=== PATIENT | female | born 1990 | race African-American/Black ===

== ENCOUNTER 2019-07-11 07:30 | Inpatient (IN) | payer OTHER ==
--- NOTE | 2019-07-01 09:39 | HPE ---
DATE OF SERVICE: 07/11/2019 This lady is a 28-year-old 3, para 2, LMP is 08/13/2018, EDC is 07/18/2019 booked for elective repeat section on 07/12/2019. PAST HISTORY: In 2014 at 39 weeks section induction of labor for preeclampsia malpresentation delivered an 5 pounds 10 ounces. In 2016 at 39 weeks had repeat section electively for 6 pounds 7 ounces. She has also had bilateral eye surgery. Presently she is taking one baby aspirin a day, iron, vitamin C and vitamins. She has no known allergies. On examination today symphysis fundus height is 39, vertex presenting, heart rate is 140 beats per minute. Presently she weighs 153.2 pounds. Her BMI is 19.7. The rest of the examination is unremarkable. Normocephalic, atraumatic. Neck full range of motion. Pupils equal and reactive to light. Distal pulses symmetric. No evidence of deep venous thrombosis (DVT), pulmonary embolus (PE) or superficial phlebitis. Chest is clear bilaterally to bases. No wheezes or rhonchi. No costovertebral angle (CVA) tenderness. Abdomen is soft, four quadrant bowel sounds are noted. Incision is clean and dry and nontender. She has no rashes, lesions or pruritus. No arthralgia or myalgia. No complaint of joint pain. No complaint of cough, wheezes, shortness breath or dyspnea on exertion. No nausea, vomiting, diarrhea or constipation. No urgency. No frequency. No GI issues and no diabetic issues. We discussed the risks and benefits of repeat section including hemorrhage, infection, perforation, , reoperation, remote possibility of blood transfusion, remote possibility of hysterectomy for life-threatening bleeding situations. We also reviewed the risk of laceration and the fetus ending up in the NICU either secondary to trauma or because of blood sugar issues. The patient expressed understanding of the risks and benefits of surgery, signed the consent form. All questions were answered. 40-minute discussion. The patient's electively booked for July 12, 2019 and she was told to discontinue her aspirin 3 days prior to section. cc: URINALYSIS TECHNICIAN Stephanie GARCIA
[~2019-07-11] VITALS: Ht 162.6 cm; Wt 70.5 kg
[~2019-07-11 07:30] MED LIST: ECOT81TA5 PO; IRON65TA2 PO; PRENTAB9 PO; VITA100T59 PO
[2019-07-12] VITALS (8 sets, daily range): BP systolic 104–133; BP diastolic 60–76
[2019-07-12] MEDS ORDERED: AZITHROMYCIN INJ 500 MG, VIAL MATE ADAPTER 1 EACH in D5W 250 ML IV ONE (05:30)
[2019-07-12] MEDS ORDERED: BICITRA 30ML SOLN UDC PO ONE ×2 (05:30→06:30)
[2019-07-12] MEDS ORDERED: BUPIVACAINE HCL 0.25% 10 ML VIAL INFIL ONE (05:30)
[2019-07-12] MEDS ORDERED: ceFAZolin SOD 2 GM in IV 1 EA IV ONE ×2 (05:30→06:30)
[2019-07-12] MEDS ORDERED: ACETAMINOPHEN 650 MG SUPP PR ONE (05:30)
[2019-07-12 05:44] LABS: HEMATOCRIT 37.1 % (36.0-47.0); HEMOGLOBIN 12.5 g/dl (12.0-15.5); MEAN CORPUSCULAR HEMOGLOBIN 29.8 pg (27.0-33.0); MEAN CORPUSCULAR HGB CONC 33.7 g/dl (32.0-36.5); MEAN CORPUSCULAR VOLUME 88.5 fl (80.0-96.0); PLATELET COUNT, AUTOMATED 103 10^3/uL (150-450); RED BLOOD COUNT 4.19 10^6/uL (4.00-5.40); WHITE BLOOD COUNT 7.7 10^3/uL (4.0-10.0)
[2019-07-12] MEDS ORDERED: LACTATED RINGER'S 1000 ML IV STA (06:16)
[2019-07-12] MEDS ORDERED: NALOXONE INJ 0.4 MG/1 ML VIAL (J2310) IV PRN ×2 (07:42)
[2019-07-12] MEDS ORDERED: NALBUPHINE HCL 10 MG/ML AMP (J2300) IV PRN ×2 (07:42→10:15)
[2019-07-12] MEDS ORDERED: ONDANSETRON 4MG/2ML VIAL (J2405) IV PRN ×2 (07:42→10:15)
[2019-07-12] MEDS ORDERED: METOCLOPRAMIDE INJ 10MG/2ML VIAL (J2765) IV PRN (07:42)
[2019-07-12] MEDS ORDERED: MORPHINE PRES-FREE INJ 10 MG/10 ML VIAL (J2274) As Ordered ONE (07:56)
[2019-07-12] MEDS ORDERED: OXYTOCIN INJ 10 UNITS/ML VIAL (J2590) As Ordered ONE (07:56)
[2019-07-12 08:27] LABS: CORD GAS ABE V -2.5; CORD GAS HCO3 V 24.7 MEQ/L; CORD GAS O2 SAT V 48.3 %; CORD GAS PH V 7.295 UNITS; CORD GAS PO2 V 21.5 mmHg; CORD GAS SBC V 21.2 MEQ/L; CORD GAS TCO2 V 26.3 MEQ/L
[2019-07-12] MEDS ORDERED: PHENYLephrine HCL 500 MCG/5 ML (100MCG/ML) SYRINGE (J2370) As Ordered ONE (08:27)
[2019-07-12 08:30] LABS: CORD GAS ABE A -3.5; CORD GAS HCO3 A 24.9 MEQ/L; CORD GAS O2 SAT A 26.5 %; CORD GAS PCO2 A 59.6 mmHg; CORD GAS PH A 7.239 UNITS; CORD GAS TCO2 A 26.7 MEQ/L
[2019-07-12] MEDS ORDERED: ONDANSETRON 4MG/2ML VIAL (J2405) As Ordered ONE (09:07)
[2019-07-12] MEDS ORDERED: LR 1,000 ML IV SCH ×2 (09:21→10:15)
[2019-07-12] MEDS ORDERED: ANUSOL HC CREAM 30GM TOP PRN (09:30)
[2019-07-12] MEDS ORDERED: OXYTOCIN DRIP 30 UNITS in IV 1 EA IV ONE (09:30)
[2019-07-12] MEDS ORDERED: RHOGAM 300 MCG (1500 IU) INJ (J2790) IM SCH ×2 (09:30)
[2019-07-12] MEDS ORDERED: MEASLES,MUMPS,RUBELLA VACCINE INJ (MMR-II) (90707) SC SCH ×2 (09:30)
[2019-07-12] MEDS ORDERED: ACETAMINOPHEN 650 MG SUPP PR PRN (09:30)
[2019-07-12] MEDS ORDERED: IBUPROFEN 800 MG TAB PO PRN (09:30)
[2019-07-12] MEDS ORDERED: MOM 30ML SUSPENSION UDC PO PRN (09:30)
[2019-07-12] MEDS ORDERED: IBUPROFEN 600 MG TAB PO PRN (09:30)
[2019-07-12] MEDS ORDERED: ACETAMINOPHEN TAB 650MG DOSE (2X325MG) PO PRN (09:30)
[2019-07-12] MEDS ORDERED: ACETAMINOPHEN 500 MG TAB PO PRN (09:30)
[2019-07-12] MEDS ORDERED: DOCUSATE SODIUM 100 MG CAP PO PRN (09:30)
[2019-07-12] MEDS ORDERED: OXYTOCIN 30 UNITS IN 0.9% NaCl 500ML IV BAG (J2590) As Ordered ONE (10:14)
[2019-07-12] MEDS ORDERED: fentaNYL 100 MCG/2 ML INJECTION (J3010) IV PRN (10:15)
[2019-07-12] MEDS ORDERED: KETOROLAC 30 MG/ML VIAL (J1885) As Ordered ONE (10:29)
[2019-07-12] MEDS: KETOROLAC 30 MG/ML VIAL (J1885) IV SCH ×3 (10:33→22:08)
[2019-07-12] MEDS: LR 1,000 ML IV SCH (21:01)
[2019-07-12] MEDS: diphenhydrAMINE INJ 50MG/ML VIAL (J1200) IV PRN (23:20)
[2019-07-13 02:30] VITALS: BP 111/60
[2019-07-13] MEDS: KETOROLAC 30 MG/ML VIAL (J1885) IV SCH (04:53)
[2019-07-13] MEDS: LR 1,000 ML IV SCH (04:53)
[2019-07-13] MEDS: diphenhydrAMINE INJ 50MG/ML VIAL (J1200) IV PRN (04:54)
[2019-07-13 05:40] VITALS: BP 126/76
--- NOTE | 2019-07-13 06:22 | IPNPDOC ---
Progress Note Date of Service: Jul 13, 2019 Day#: 1 Progress Note SUBJECT: Patient is a 29-year-old 3 now Para 3 status post uncomplicated RLTCS, POD # 1. She has a catheter still and tolerating clear diet. Breast feeding without issue. Reports lochia is like a normal period. Patient ambulated once last night with assistance. Reports some cramping with and reports some difficulty with . Has appropriate pain. OBJECTIVE: VITAL SIGNS: Within normal limits, afebrile. Alert and oriented times three. Breast without erythema. Breath sounds clear to auscultation. Heart rate: Regular rate and rhythm, no murmurs, rubs or gallops. Abdomen: Fundus firm at U-2. Soft, NTTP. Dressing clean, dry, and intact. Minimal lochia. Lower Extremeties without edema or tenderness. ASSESSMENT: Patient is a 29-year-old 3 now Para 3 status post uncomplicated RLTCS, POD # 1. Vitals within normal limits, afebrile, hemodynamically stable with no evidence of infection. PLAN: 1. Routine postop advances and care. 2. Tylenol and Motrin and percocet for pain. 3. Encourage breast feeding and ambulation. 4. nurse to see today. VS, I&O, 24H, Fishbone Vital Signs/I&O Vital Signs Date Time Temp Pulse Resp B/P (MAP) Pulse Ox O2 Delivery O2 Flow Rate FiO2 07/12/19 17:38 97.3 56 18 125/72 (89) 100 Room Air Laboratory Data 24H LABS Laboratory Tests 2 07/11/19 23:34: Serology Scanned Report Hepatitis B Testing 07/12/19 05:37: Nucleated Red Blood Cells % (auto) 0.0, Syphilis Serology NONREACTIVE 07/12/19 07:38: Cord Arterial Blood pH 7.239, Cord Arterial Blood PCO2 59.6, Cord Arterial Blood PO2 15.0, Cord Arterial Blood HCO3 24.9, Cord Arterial Blood Total CO2 26.7, Cord Arterial Blood Base Excess -3.5, Cord Arterial Base Excess (Standard 20.0, Cord Arterial Bld Oxygen Saturation 26.5, Cord Venous Blood pH 7.295, Cord Venous Blood PCO2 52.0, Cord Venous Blood PO2 21.5, Cord Venous Blood HCO3 24.7, Cord Venous Blood Total CO2 26.3, Cord Venous Base Excess (Actual) -2.5, Cord Ve nous Base Excess (Standard) 21.2, Cord Venous Blood Oxygen Saturation 48.3 CBC/BMP Laboratory Tests 07/12/19 05:37 Alise Tom MD Jul 12, 2019 17:55
[2019-07-13 07:19] LABS: HEMATOCRIT 28.6 % (36.0-47.0); MEAN CORPUSCULAR HGB CONC 33.6 g/dl (32.0-36.5); MEAN CORPUSCULAR VOLUME 89.4 fl (80.0-96.0); WHITE BLOOD COUNT 8.2 10^3/uL (4.0-10.0)
[2019-07-13 07:20] LABS: HEMOGLOBIN 9.6 g/dl (12.0-15.5); PLATELET COUNT, AUTOMATED 88 10^3/uL (150-450)
[2019-07-13] MEDS ORDERED: PRENATAL VITAMINS CHEWABLE TABLET PO SCH ×2 (09:00)
[2019-07-13 10:10] VITALS: BP 118/62
[2019-07-13] MEDS: IBUPROFEN 800 MG TAB PO SCH ×2 (11:50→19:50)
[2019-07-13 14:00] VITALS: BP 116/71
[2019-07-13] MEDS: PERCOCET 5MG/325MG TAB PO PRN ×2 (14:35→19:49)
[2019-07-13 18:08] VITALS: BP 116/67
--- NOTE | 2019-07-13 20:12 | RO ---
DATE OF PROCEDURE: 07/12/2019 POSTOPERATIVE DIAGNOSIS: Repeat section. POSTOPERATIVE DIAGNOSIS: Repeat section, adhesions. OPERATION PROPOSED: Repeat section. OPERATION PERFORMED: Repeat section. ESTIMATED BLOOD LOSS: 500 mL. SURGEON: Burak Alcantara MD [employer] COUNTER PERSON: Vaishali for extraction, retraction and visualization. DESCRIPTION OF PROCEDURE: After adequate time-out, prepped and draped in the supine position, Omrales catheter in the bladder draining clear urine. Acetaminophen suppository 1300 mg per rectum. Appropriate antibiotics preoperatively. A Pfannenstiel incision was made through the previous one, passing through abdominal layers securing hemostasis. There was extensive scarring of the fascia, of the fascia to the skin and opening into the peritoneal cavity, the bladder was tacked down to the uterus anteriorly. We attempted to use the Mobius, but we were unable to get the Mobius in, and therefore, we used our usual method of retraction. The bladder was reflected well down anteriorly, low transverse incision was made into the uterus, ARM was draining clear liquor. We attempted with manual compression to extract the baby's head but skin, fascia, muscles were so tight and adherent that we had to extend the incision of the skin, extend the incision of the fascia, extend the incision at the muscle area. We also needed the use a forceps to elevate the baby's head out of the pelvis and with pressure, we finally delivered a live male infant weighing 3510 grams, 7 pounds 12 ounces, scores of 8 and 9 at one and five minutes respectively. Arterial and venous pH were done and were within normal limits. The placenta was manually removed, three vessels in the cord, membranes and tissues intact. The uterus was swept clean, it contracted well down on Pitocin. The lower segment was then oversewn in the usual fashion in two layers, imbricating the second layer. Reperitonealization of that area was performed. With instrument and pad count correct, both ovaries and tubes appeared to be normal. The abdomen was then closed, running stitch for the peritoneum, same for the fascia, nothing for subcu, and Dexon 3.0 for skin, Marcaine 0.25% 10 mL, spray and Telfa, and the patient was sent to recovery in good condition.
[2019-07-14] MEDS: PERCOCET 5MG/325MG TAB PO PRN (00:33)
[2019-07-14] MEDS: IBUPROFEN 800 MG TAB PO SCH (04:00)
[2019-07-14 05:49] VITALS: BP 117/65
[2019-07-14] MEDS ORDERED: PROC1CRE5 TOP (07:31)
[2019-07-14] MEDS ORDERED: IBUP80TA PO (07:31)
[2019-07-14] MEDS ORDERED: DOCU100C16 PO (07:31)
[2019-07-14] MEDS ORDERED: PERCOCET PO (07:31)
--- NOTE | 2019-07-15 10:38 | DSES ---
DATE OF ADMISSION: 07/12/2019 DATE OF DISCHARGE: 07/14/2019 This lady is a 29-year-old 3 now para 3 admitted for elective repeat section, delivered a live male infant weighing 7 pounds 12 ounces, 3510 grams, scores of 8 and 9 at 1 and 5 minutes respectively. Arterial pH 7.29, base excess -3.5, venous pH 7.29, base excess -2.5. On discharge, we discussed phlebitis, cystitis, mastitis, endometritis and cellulitis, diet, exercise, pain management, perineal, breast and wound care. Admitting hemoglobin 12.5, hematocrit 37.1 and platelets were 103. Discharge hemoglobin 9.6, hematocrit 28.6 and platelets were 88. She has no symptoms in regards to her low hemoglobin. She is not bleeding. On discharge, her blood pressure was 117/65, respirations 17, pulse 66 and temperature 97.6. We discussed phlebitis, cystitis, mastitis, endometritis and cellulitis, diet, exercise, pain management, perineal, breast and wound care. On examination, she is normocephalic, atraumatic. Neck full range of motion. Pupils equal and reactive to light. Distal pulses are symmetric. No evidence of DVT, PE or superficial phlebitis. Chest is clear bilaterally to bases. No wheezes or rhonchi. No CVA tenderness. Abdomen soft. Uterus two below. Lochia is moderate. Four quadrant bowel sounds are noted. Incision is clean and dry. She has no rashes, lesions or pruritus. No arthralgia or myalgia. No complaint of joint pain. No complaint of cough, wheeze, shortness of breath or dyspnea on exertion. No nausea, vomiting, diarrhea or constipation. She is . She is voiding and passing gas. She had significant amount of adhesions in her previous section which we had to remove and this may give her some increased tenderness in the lower area. Medications were dispensed at [place]. She has a 2-week incision check and 6-week check at [facility]. All questions were answered. 20-minute discussion. The patient is discharged to followup at the appropriate intervals.
--- NOTE | 2019-07-17 21:05 | IPN ---
DATE: 07/12/2019 This patient has requested circumcision of their male infant. After discussing risks and benefits of circumcision, the medical and nonmedical indications, the penile block and aftercare, expressed understanding of the penile block and aftercare and bleeding, signed the consent form. All questions were answered, 20-minute discussion. Await clearance by the rn orthopedic.
== END 2019-07-14 12:20 | disposition home or self-care (01) | DRG 773 ==
LOC: M LDI 07-12 04:44 → M OBS 07-12 12:16
PROVIDERS: ADMIT Obstetrics & Gynecology; ATTEND Obstetrics & Gynecology
PROC: 10D00Z1 Extraction of Products of Conception, Low, Open Approach (ICD-10-PCS; principal; 2019-07-12 07:30)
DX: O34.211 Maternal care for low transverse scar from previous cesarean delivery (principal); Z3A.39 39 weeks gestation of pregnancy; Z37.0 Single live birth